=== PATIENT | male | born 1975 | race Caucasian/White ===

== ENCOUNTER 2021-01-16 20:38 | Emergency (ER) | payer SELFPAY ==
[2021-01-16 22:38] LABS: HEMOGLOBIN 17.1 gm/dl (14.0-17.5); RED BLOOD COUNT 5.42 M/UL (4.20-5.50); WHITE BLOOD COUNT 11.3 K/UL (4.5-11.0)
[2021-01-16 23:23] LABS: BUN/CREATININE RATIO 14 (0-10)
[2021-01-16] MEDS ORDERED: CLEOCIN HCL150 MG PO (23:31)
== END 2021-01-16 23:47 | disposition home or self-care (01) ==
LOC: ER1 20:38
PROVIDERS: Physician Assistant Medical
DX: T81.40XA Infection following a procedure, unspecified, initial encounter (principal); F17.210 Nicotine dependence, cigarettes, uncomplicated
CPT/HCPCS: 73140; 80053; 85025; 85652; 86140; 90471; 90715; 96374; 99283